=== PATIENT | male | born 1995 | race Caucasian/White ===

== ENCOUNTER 2024-10-20 19:59 | Emergency (ER) | payer OTHER, SELFPAY ==
--- NOTE | 2024-10-20 20:11 | ED.GENMED ---
History of Present Illness
<Yayo Benson PA-C - Last Filed: 10/20/24 20:14>
General
Chief Complaint: Crisis Evaluation
Source: patient and ambulance crew
Time Seen by Provider: 10/20/24 20:05
History of Present Illness
History of Present Illness:
29-year-old male with past medical history of ADHD, anxiety, Tourette's, questionable schizoaffective disorder/bipolar disorder presenting to the ER via EMS from home after patient reports that he was having a conversation with parents, felt the
need to contact 911 to have a police captain senior moderate conversation, notes that he was not upset at the time but is unable to discuss what exact conversation was occurring, patient states he was then taken via ambulance to the hospital. Patient
denies any SI, HI, auditory or visual hallucinations. He does admit to occasional alcohol use but denies any other recreational substance use. Patient does smoke at least half a pack per day. Per EMS family was concerned for worsening abnormal
behaviors at home which is why they contacted EMS to have patient be evaluated by crisis staff in the ER.
Past History
<Yayo Benson PA-C - Last Filed: 10/20/24 20:14>
Past History
ED Past Medical History: Psychiatric (Anxiety and depression)
ED Past Surgical History: None
Social History
Tobacco: Non-smoker
Alcohol: None
Drug: None
Personal: Single
Living: with family
Employment: Not employed
Family History
Family History: Other (Noncontributory)
Review of Systems
<Yayo Benson PA-C - Last Filed: 10/20/24 20:14>
Review of Systems
All Other Systems: ROS reviewed and negative except as documented in HPI and ROS
Phy Exam
<Yayo Benson PA-C - Last Filed: 10/20/24 20:14>
Physical Exam
Physical Exam:
GENERAL: Alert , in no apparent distress
EYE: conjunctiva clear
Head: Normocephalic atraumatic
NECK: Supple,
ENT: mmm.
LUNGS: no acute respiratory distress
NEUROLOGICAL: Alert and oriented
SKIN: Warm and dry, skin intact.
MUSCULOSKELETAL: well perfused.
PSYCH: Odd affect
Scores
<Yayo Benson PA-C - Last Filed: 10/20/24 20:14>
Heart Failure Risk
Heart Failure Risk Score: Not Applicable
Heart Score for Chest Pain Patients
STEMI patient?: Not applicable
Withdrawal Assessment of Alcohol
Withdrawal Assessment Completed?: Not applicable
Course
<Yayo Benson PA-C - Last Filed: 10/20/24 20:14>
Orders/Labs/Results
Orders:
Orders
10/20/24 20:11
1:1 Observation - Suicide/ Violent Behavior As Directed
Crisis Consult Urgent
Reason for Consult: abnormal behaviors, family called EMS
Vital Signs
Initial and Last Documented VS:
Initial Vital Signs
Temp Pulse Resp BP Pulse Ox
98.3 F 95 18 141/99 100
10/20/24 20:13 10/20/24 20:13 10/20/24 20:13 10/20/24 20:13 10/20/24 20:13
Last Documented Vital Signs
Temp Pulse Resp BP Pulse Ox
98.3 F 95 18 141/99 100
10/20/24 20:13 10/20/24 20:13 10/20/24 20:13 10/20/24 20:13 10/20/24 20:13
<Franck Hooker PA-C - Last Filed: 10/20/24 23:33>
Orders/Labs/Results
Orders:
Orders
10/20/24 20:11
1:1 Observation - Suicide/ Violent Behavior As Directed
Crisis Consult Urgent
Reason for Consult: abnormal behaviors, family called EMS
Vital Signs
Initial and Last Documented VS:
Initial Vital Signs
Temp Pulse Resp BP Pulse Ox
98.3 F 95 18 141/99 100
10/20/24 20:13 10/20/24 20:13 10/20/24 20:13 10/20/24 20:13 10/20/24 20:13
Last Documented Vital Signs
Temp Pulse Resp BP Pulse Ox
98.3 F 95 18 141/99 100
10/20/24 20:13 10/20/24 20:13 10/20/24 20:13 10/20/24 20:13 10/20/24 20:13
<Yayo Benson PA-C - Last Filed: 10/20/24 20:14>
MDM/Problems Addressed
Differential Diagnosis Includes:
Exacerbation of psychiatric issues, no symptoms to suggest infectious etiology, no concern for acute neurologic complication
MDM/Problems Addressed:
29-year-old male presenting to the ER for evaluation of reported increased abnormal behaviors over the last 2 weeks. Has a questionable history of schizoaffective disorder/bipolar disorder. Patient denying any suicidal ideations. Unclear as to
how EMS/police became involved as patient's history seems unreliable. Crisis consultation ordered. Patient to be kept on a one-to-one for safety.
<Yayo Benson PA-C - Last Filed: 10/20/24 20:14>
*Pulse Oximetry
Patient hypoxic: no
<Franck Hooker PA-C - Last Filed: 10/20/24 23:33>
*Critical Care Note
Total Time (30-74mins, 75-104mins- exclusive of procedures): Not Applicable
<Franck Hooker PA-C - Last Filed: 10/20/24 23:33>
Update Note
Update Note:
2229: Reviewed case with crisis. At this time patient does not wish to sign informed patient treatment and there are no definitive criteria. Will be referred to a partial hospitalization by crisis. Will be discharged from the emergency department
ED Attending Note
<Yayo Benson PA-C - Last Filed: 10/20/24 20:14>
-
Portions of this chart may have been created with voice recognition software.� Occasional wrong word or��sound alike� substitutions may have occurred due to the inherent limitations of voice recognition software.
Discharge Plan
Departure
Patient Disposition: Home (Routine Discharge)
Date of Disposition: 10/20/24
Time of Disposition: 22:30
Patient with high blood pressure during this ER visit?: No
Discharge Problem:
Anxiety
Instructions: Anxiety, Adult (DC)
Prescriptions:
No Action
methylphenidate HCl [Concerta] 54 MG tablet extended release 24hr
54 mg PO DAILY
dextroamphetamine-amphetamine [Adderall XR] 15 MG capsule,extended release 24hr
15 mg PO DAILY
dicyclomine 10 MG capsule
10 mg PO QIDPRN PRN (Reason: abdominal cramps) Qty: 14 0RF
clonazepam 1 MG tablet
1 mg PO TID Qty: 21 0RF
Referrals:
Bandar Radford MD [Family Provider] -
Activity Restrictions/Additional Instructions:
Follow-up with resources provided to you by crisis
Interventions
Interventions:
*Risk Screen - Suicide Last Done: 10/20/24 20:13
*General Assessment Last Done: 10/20/24 20:13
*Neglect/Abuse Screening Last Done: 10/20/24 20:13
Discharge Date and Time
Print Language: MACEDONIAN
[2024-10-20 20:13] VITALS: BP 141/99
== END 2024-10-20 23:30 | disposition home or self-care (01) ==
LOC: EMR 19:59
PROVIDERS: EMERGENCY PHYSICIAN Emergency Medicine; FAMILY PHYSICIAN Family Medicine
DX: F41.9 Anxiety disorder, unspecified (principal); F90.9 Attention-deficit hyperactivity disorder, unspecified type; F95.2 Tourette's disorder; F25.9 Schizoaffective disorder, unspecified; F31.9 Bipolar disorder, unspecified
CPT/HCPCS: 99282